=== PATIENT | male | born 1970 | race African-American/Black ===

== ENCOUNTER 2018-03-20 15:35 | Emergency (ER) | payer MEDICAID ==
[~2018-03-20] VITALS: Ht 177.8 cm; Wt 155.1 kg
[2018-03-20 16:00] VITALS: BP 131/78
[2018-03-20 16:18] LABS: APPEARANCE,URINE CLEAR; BILIRUBIN, URINE NEGATIVE (NEGATIVE); GLUCOSE, URINE (UA) NEGATIVE (NEGATIVE); KETONES,URINE NEGATIVE (NEGATIVE); LEUKOCYTE ESTERASE ,URINE 1+ (NEGATIVE); NITRITE,URINE NEGATIVE (NEGATIVE); PH,URINE 5 (4.5-8.0); PROTEIN,URINE 4+ (NEGATIVE); UROBILINOGEN,URINE 4 MG/DL (0.0-1.0)
[2018-03-20 16:23] LABS: COLOR,URINE YELLOW
[2018-03-20] MEDS ORDERED: ASPIRIN-LOW81 MG ORAL (16:44)
[2018-03-20] MEDS ORDERED: NORVASC2.5 MG ORAL (16:45)
[2018-03-20] MEDS ORDERED: LORATADINE10 M1 PO (16:45)
[2018-03-20] MEDS ORDERED: NORVASC5 MG ORAL (16:47)
[2018-03-20] MEDS ORDERED: LOVASTATIN20 MG ORAL (16:47)
[2018-03-20 16:55] LABS: BASOPHILS % (AUTO) 2.8 % (0.0-2.0); EOSINOPHILS % (AUTO) 1.1 % (0.0-3.0); HEMATOCRIT 46.3 % (42.0-52.0); HEMOGLOBIN 14.4 G/DL (14.2-18.0); LYMPHOCYTES % (AUTO) 22.3 % (20.0-45.0); MEAN CORPUSCULAR VOLUME 90 FL (80-99); MONOCYTES % (AUTO) 10.2 % (1.0-10.0); NEUTROPHILS % (AUTO) 63.6 % (45.0-75.0); PLATELET COUNT 168 K/UL (150-450); RED BLOOD COUNT 5.16 M/UL (4.70-6.10); RED CELL DISTRIBUTION WIDTH 16.6 % (11.6-14.8); WHITE BLOOD COUNT 6.1 K/UL (4.8-10.8)
[2018-03-20 16:57] LABS: ANION GAP 2 mmol/L (5-15); BLOOD UREA NITROGEN 17 mg/dL (7-18); CALCIUM 8.3 MG/DL (8.5-10.1); CARBON DIOXIDE 38 MMOL/L (21-32); CHLORIDE 103 MMOL/L (98-107); CREATININE 1.6 MG/DL (0.55-1.30); POTASSIUM 4.3 MMOL/L (3.5-5.1); SODIUM 143 MMOL/L (136-145)
[2018-03-20 17:08] LABS: ALANINE AMINOTRANSFERASE 32 U/L (12-78); ALBUMIN 2.5 G/DL (3.4-5.0); ALBUMIN/GLOBULIN RATIO 0.6 (1.0-2.7); ALKALINE PHOSPHATASE 81 U/L (46-116); ASPARTATE AMINO TRANSFERASE 21 U/L (15-37); BILIRUBIN,TOTAL 0.5 MG/DL (0.2-1.0); CREATINE KINASE 288 U/L (26-308)
--- NOTE | 2018-03-20 17:28 | Diagnostic Imaging Report ---
Indication: Chest pain Technique: XRAY Chest 1v Comparison: None Findings: Limited exam due to underpenetration, likely related to patient's large body habitus. Heart is enlarged. There is vascular congestion/mild interstitial edema. There is poor evaluation of the retrocardiac lung and pathology in this area are not excluded. IMPRESSION: Limited exam due to significant underpenetration. Cardiomegaly and probable pulmonary vascular congestion/interstitial edema. Retrocardiac lung is poorly evaluated and pathologies in this region are not excluded.
[2018-03-20 18:00] VITALS: BP 141/67
[2018-03-20] MEDS ORDERED: Albuterol ud Inhalation HHN ONE (18:45)
[2018-03-20] MEDS ORDERED: Ipratropium 0.02% Inh Soln 2.5ml UD HHN ONE (18:45)
[2018-03-20 19:47] VITALS: BP 141/67
[2018-03-20 21:40] VITALS: BP 95/43
--- NOTE | 2018-03-20 23:12 | Emergency Room Report ---
History of Present Illness General Chief Complaint: Edema Source: Patient, EMS Present Illness HPI Patient presents with generalized body swelling. In addition he states the ring is stuck on his finger he wants the rings cut off his fingers. He states his he's not taking any of his medications for the swelling in his body. He's been off of his medications for least 45 days. He states that he's been on the streets during this time. He gets extremely dyspneic with laying down as well as with exertion. He has any fevers, productive cough nausea, vomiting, diarrhea. No chest pain, NVD, dysuria, rashes, headache, change in vision, polies. The patient does use home oxygen on occasion. Some problem with his accessing his house at this time regarding his family. The patient denies smoking at this time. Also denies drug use recently. Allergies: Coded Allergies: IBUPROFEN (Unverified Allergy, Unknown, 03/20/18) Patient History Past Medical History: see triage record Social History: Denies: smoking, drug use Social History Narrative Has a home but hasn't base for 45 days states that he's been on an adventure Reviewed Nursing Documentation: PMH: Agreed; PSxH: Agreed Nursing Documentation-PMH Hx Hypertension: Yes Hx Asthma: Yes Review of Systems All Other Systems: negative except mentioned in HPI Physical Exam Vital Signs Date Time Temp Pulse Resp B/P (MAP) Pulse Ox O2 Delivery O2 Flow Rate FiO2 03/20/18 15:26 97.0 78 17 160/100 100 Room Air 97.0 03/20/18 18:43 2.0 28 Sp02 EP Interpretation: reviewed, normal General Appearance: alert, GCS 15, non-toxic, obese - morbidly Head: normocephalic Eyes: bilateral eye normal inspection, bilateral eye PERRL ENT: moist mucus membranes Neck: supple Respiratory: lungs clear, normal breath sounds, decreased breath sounds Cardiovascular #1: regular rate, rhythm, edema - bilat 2 + Cardiovascular #2: 2+ radial (R) Gastrointestinal: normal inspection, normal bowel sounds, non tender, no mass, non-distended, overweight Musculoskeletal: back normal, gait/station normal, normal range of motion, no calf tenderness, Elise's Sign negative Neurologic: alert, oriented x3, grossly normal Psychiatric: mood/affect normal, no suicidal/homicidal ideation Skin: warm/dry, other - striae and xerosis LE Medical Decision Making Diagnostic Impression: Primary Impression: Hypoxia Additional Impressions: CHF (congestive heart failure) Qualified Codes: I50.43 - Acute on chronic combined systolic (congestive) and diastolic (congestive) heart failure COPD (chronic obstructive pulmonary disease) Qualified Codes: J44.9 - Chronic obstructive pulmonary disease, unspecified Morbid obesity Ring removal ER Course Patient presents a total body swelling and dyspnea. Differential includes acute miocardial infarction, COPD, CHF, pneumonia amongst others. In addition he complains of swollen fingers and wants ring removal. Evaluation will be with EKG, chest x-ray and labs. Based on findings most likely she'll be treated with Lasix. The patient became hypoxemic here. He was awake. Oxygen was begun. Breathing treatment was obtained. Chest x-ray showed cardiomegaly and some mild congestive heart failure without infiltrates. Lasix was given IV and the patient started diuresing. Labs with some renal insufficiency, negative trop and elevated BNP. Normal WBC. Neg tox. He was improving but needed hospitalization for continued diuresis and evaluation of his heart and lungs. Also he needed evaluation by social worker masters to ascertain the status of his social situation. The patient was presented to Dr. Knox at [facility]. He was accepted in transfer for telemetry bed. Laboratory Tests Test 03/20/18 16:05 03/20/18 16:30 Urine Color Yellow Urine Appearance Clear Urine pH 5 (4.5-8.0) Urine Specific [place] 1.020 (1.005-1.035) Urine Protein 4+ (NEGATIVE) H Urine Glucose (UA) Negative (NEGATIVE) Urine Ketones Negative (NEGATIVE) Urine Occult Blood 2+ (NEGATIVE) H Urine Nitrite Negative (NEGATIVE) Urine Bilirubin Negative (NEGATIVE) Urine Urobilinogen 4 MG/DL (0.0-1.0) H Urine Leukocyte Esterase 1+ (NEGATIVE) H Urine RBC 2-4 /HPF (0 - 0) H Urine WBC 0-2 /HPF (0 - 0) Urine Squamous Epithelial Cells None /LPF (NONE/OCC) Urine Bacteria Few /HPF (NONE) Urine Opiates Screen Negative (NEGATIVE) Urine Barbiturates Screen Negative (NEGATIVE) Phencyclidine (PCP) Screen Negative (NEGATIVE) Urine Amphetamines Screen Negative (NEGATIVE) Urine Benzodiazepines Screen Negative (NEGATIVE) Urine Cocaine Screen Negative (NEGATIVE) Urine Marijuana (THC) Screen Negative (NEGATIVE) White Blood Count 6.1 K/UL (4.8-10.8) Red Blood Count 5.16 M/UL (4.70-6.10) Hemoglobin 14.4 G/DL (14.2-18.0) Hematocrit 46.3 % (42.0-52.0) Mean Corpuscular Volume 90 FL (80-99) Mean Corpuscular Hemoglobin 27.9 PG (27.0-31.0) Mean Corpuscular Hemoglobin Concent 31.2 G/DL (32.0-36.0) L Red Cell Distribution Width 16.6 % (11.6-14.8) H Platelet Count 168 K/UL (150-450) Mean Platelet Volume 8.6 FL (6.5-10.1) Neutrophils (%) (Auto) 63.6 % (45.0-75.0) Lymphocytes (%) (Auto) 22.3 % (20.0-45.0) Monocytes (%) (Auto) 10.2 % (1.0-10.0) H Eosinophils (%) (Auto) 1.1 % (0.0-3.0) Basophils (%) (Auto) 2.8 % (0.0-2.0) H Prothrombin Time 10.9 SEC (9.30-11.50) Prothrombin Time INR 1.0 (0.9-1.1) PTT 24 SEC (23-33) Sodium Level 143 MMOL/L (136-145) Potassium Level 4.3 MMOL/L (3.5-5.1) Chloride Level 103 MMOL/L (98-107) Carbon Dioxide Level 38 MMOL/L (21-32) H Anion Gap 2 mmol/L (5-15) L Blood Urea Nitrogen 17 mg/dL (7-18) Creatinine 1.6 MG/DL (0.55-1.30) H Estimate Glomerular Filtration Rate 57.0 mL/min (>60) Glucose Level 100 MG/DL (74-106) Calcium Level 8.3 MG/DL (8.5-10.1) L Total Bilirubin 0.5 MG/DL (0.2-1.0) Aspartate Amino Transferase (AST) 21 U/L (15-37) Alanine Aminotransferase (ALT) 32 U/L (12-78) Alkaline Phosphatase 81 U/L (46-116) Total Creatine Kinase 288 U/L (26-308) Troponin I 0.025 ng/mL (0.000-0.056) Pro-B-Type Natriuretic Peptide 6349 pg/mL (0-125) H Total Protein 6.8 G/DL (6.4-8.2) Albumin 2.5 G/DL (3.4-5.0) L Globulin 4.3 g/dL Albumin/Globulin Ratio 0.6 (1.0-2.7) L EKG Diagnostic Results Rate: tachycardiac ST Segments: no acute changes Rhythm Strip Diag. Results EP Interpretation: yes Rhythm: NSR, no PVC's, no ectopy Chest X-Ray Diagnostic Results Chest X-Ray Diagnostic Results : Chest X-Ray Ordered: Yes # of Views/Limited/Complete: 1 View Indication: Shortness of Breath EP Interpretation: Yes Interpretation: no consolidation, no effusion, no pneumothorax, other - inc cor and some CHF Impression: Other Electronically Signed by: Electronically signed by Sandip Zapata MD Last Vital Signs Date Time Temp Pulse Resp B/P (MAP) Pulse Ox O2 Delivery O2 Flow Rate FiO2 03/20/18 23:29 98.0 109 20 134/75 96 Room Air 03/20/18 21:40 1.0 28 Status: improved Disposition: XFER S[facility]-TRM HOSP Condition: Serious - but stable for transfer Referrals: [facility],REFERR[facility] (PCP) Sandip Zapata M.D. Mar 20, 2018 23:12
[2018-03-20 23:20] VITALS: BP 134/75
[2018-03-20 23:29] VITALS: BP 134/75
--- NOTE | 2018-03-21 16:54 | Cardiology Report ---
APPROVED REPORT EKG Measurement Heart [id number] Sinus tachycardia Rightward axis Nonspecific T wave abnormality Abnormal ECG
== END 2018-03-20 23:45 | disposition short-term general hospital (02) ==
LOC: EDBD 15:35 → EMR 18:47
DX: R09.02 Hypoxemia (principal); I11.0 Hypertensive heart disease with heart failure; I50.9 Heart failure, unspecified; J44.9 Chronic obstructive pulmonary disease, unspecified; E66.01 Morbid (severe) obesity due to excess calories; Z68.42 Body mass index [BMI] 45.0-49.9, adult; L85.3 Xerosis cutis; Z88.2 Allergy status to sulfonamides
CPT/HCPCS: 36415; 71045; 80053; 80307; 81003; 82550; 82962; 83880; 84484; 85025; 85610; 85730; 93005; 94640; 96374; 99285; J1940